=== PATIENT | female | born 1960 | race Caucasian/White ===

== ENCOUNTER 2020-04-22 08:16 | Outpatient (CLI) | payer OTHER, SELFPAY ==
[2020-04-22 08:56] LABS: Hematocrit 45.1 % (37.0-47.0); Hemoglobin 14.5 g/dL (12.0-15.0)
== END 2020-04-22 08:17 | disposition home or self-care (01) ==
PROVIDERS: Visit Provider Obstetrics & Gynecology
DX: N95.0 Postmenopausal bleeding (principal); Z01.818 Encounter for other preprocedural examination
CPT/HCPCS: 36415; 85014; 85018

== ENCOUNTER 2020-04-23 03:27 | Outpatient (CLI) | payer OTHER, SELFPAY ==
[2020-04-23 17:45] LABS: SARS-CoV-2 RNA PCR Negative
== END 2020-04-23 03:28 | disposition home or self-care (01) ==
LOC: ANHCOVIDDT 03:27
PROVIDERS: Visit Provider Obstetrics & Gynecology
DX: Z01.812 Encounter for preprocedural laboratory examination (principal); Z20.828 Contact with and (suspected) exposure to other viral communicable diseases
CPT/HCPCS: 87635; C9803; U0003

== ENCOUNTER 2020-04-26 01:40 | Day surgery (SDC) | payer OTHER, SELFPAY ==
[2020-04-21 10:47] VITALS: BMI 23.6
--- NOTE | 2020-04-21 11:19 | P.HP_ITS ---
H&P: HPI History of Present Illness Date/Time: 04/21/20 11:19 Chief complaint: Postmenopausal Bleeding Narrative: Mikayla Oconnor is a 60 year old female who is postmenopausal by 10+ years is admitted for hysteroscopy dilatation curettage. She had some vaginal bleeding for 10 days. Ultrasound shows endometrium to measure 12mm in size. Risks and benefits were reviewed in full. She received the [employer] handout entitled hysteroscopy as well as dilatation curettage respectively. She had all questions answered. She asked to proceed Review of Systems Review of Systems: All systems reviewed & are unremarkable except as noted in HPI and below [facility] Social History Social History Smoking status: Never smoker Spiritual care concerns: No Meds Home Medications and Allergies Home Medications Medication Instructions Recorded Confirmed Type multivitamin 1 tablet PO DAILY 04/21/20 04/21/20 History Allergies Allergy/AdvReac Type Severity Reaction Status Date / Time No Known Allergies Allergy Unverified 04/21/20 10:48 Exam Const: General: no acute distress Eyes: General: appearance normal, both eyes and all related structures Neck: Neck: supple and no JVD Thyroid: thyroid normal Resp: Effort & Inspection: normal respiratory effort Auscultation: clear to auscultation bilaterally Cardio: Rate: regular rate Rhythm: regular rhythm GI: Inspection: non-distended GI Palp: Yes Soft to palpation, No Tenderness to palpation present (GI) and No Guarding due to palpation present (GI) Auscultation: normal bowel sounds : General: Yes bladder normal to palpation External Female Exam: normal external appearance Speculum Exam - Vagina: normal vaginal discharge and No vaginal bleeding Speculum Exam - Cervix: nontender Bimanual exam- vagina & uterus: bladder normal to palpation and No Cervical tenderness present O B/external & speculum: No vaginal bleeding Skin: General skin exam: no rashes or lesions noted Extrem: General: normal to inspection and no edema Psych: Mental Status: mental status grossly normal Affect: normal affect Assessment and Plan Additional Plan impression: Postmenopausal bleeding Plan: Hysteroscopy/dilatation curettage
--- NOTE | 2020-04-26 06:25 | WPDHPUPDATE1 ---
History and Physical Update Update Date/Time: 04/26/20 06:25 History and Physical has been reviewed, including an updated exam of the patient. There are NO changes in the patient's condition. Risks, benefits, and alternatives have been discussed and questions answered. Patient agrees to proceed with procedure.
[2020-04-26] MEDS: ACETAMINOPHEN 500 MG TABLET 1000 MG PO (06:50)
[2020-04-26] MEDS: LACTATED RINGERS 1,000 ML 30 ML IV CONT (06:55)
[2020-04-26 07:09] VITALS: BP 133/70; PULSE 64; RESP 16; TEMP 36.6; O2SAT 100
--- NOTE | 2020-04-26 07:49 | WPDANESEPPF ---
Anes - Initial Pre Proc Eval Procedure: Operation Date: 04/26/20 08:30 Proposed Procedures p Hysteroscopy, Dilation And Curettage - Jean Grey MD Date/Time: 04/26/20 07:49 Surgeon: Jean Grey MD Pre Op Diagnosis: Postmenopausal Bleeding Patient Data Age: 60 Gender: F Height: 1.68 m Weight: 68.1 kg Last Vital Signs Temp 36.6 C 04/26/20 07:09 Pulse 64 04/26/20 07:09 Resp 16 04/26/20 07:09 BP 133/70 04/26/20 07:09 Pulse Ox 100 04/26/20 07:09 Allergies Allergy/AdvReac Type Severity Reaction Status Date / Time No Known Allergies Allergy Verified 04/26/20 06:45 Home Medications Medication Instructions Recorded Confirmed Type multivitamin 1 tablet PO DAILY 04/21/20 04/26/20 History hydrocodone-acetaminophen 1 tablet PO Q6H PRN #20 tablet 04/26/20 Rx Patient hx anesthesia problems: none Family hx anesthesia problems: none PMFSH Social History Social History Smoking status: Never smoker Spiritual care concerns: No Anes - Eval Final PreProcedure Day of Procedure 04/26/20 07:49 Patient weight: normal Heart: regular rate and rhythm Lungs: clear to auscultation and normal air movement Airway: Mallampati scale class II Neurological: alert and oriented Last oral intake: >/= 8 hours ASA classification: I Emergent: no Anesthetic plan: proceed Anesthesia type and monitoring: general LMA Informed Consent: The patient's anesthetic plan and its attendant risks and benefits were discussed with the patient/family/POA. Questions were solicited and answers provided to the satisfaction of the patient/family/POA.
--- NOTE | 2020-04-26 08:44 | SUR.OPER ---
hysteroscopy irrigation 50 in and 50 out
--- NOTE | 2020-04-26 08:49 | PM.PROC ---
Procedure Note - Detailed Date of procedure: 04/26/20 Pre-op diagnosis: Postmenopausal Bleeding Surgeon: Jean Grey MD postop diagnosis: Postmenopausal bleeding/ endometrial polyp Procedure: Hysteroscopy/ polypectomy / dilatation curettage Anesthesia: IV sedation and local EBL: 5Cc complications: None Findings: A benign-appearing endometrial polyp. Otherwise benign bland appearing endometrium Description ofProcedure: the patient was prepped and draped in the normal sterile fashion and placed in dorsal lithotomy position. Under excellent IV sedation weighted speculum was placed in posterior fornix of vagina. 2.5cc of 1% xylocaine anesthesia placed at 2, 4, 6, 10:00 a.m. of the cervix. The uterus sounded to 8cm. Serial dilatation with fragmented dilators performed followed by passage of the 5mm visualizing hysteroscope. Normal saline was used as visualizing medium. Moderate size polyp was seen in the uterus. This was removed with the polyp resector. The uterus was then scraped over the entire 360? until a good grating sound was heard. The procedure was finished. All sponge, needle, instrument counts were correct. There were no immediate complications
[2020-04-26 08:52] VITALS: BP 82/48; PULSE 53; RESP 12; O2SAT 97
[2020-04-26 09:10] VITALS: BP 89/57; PULSE 59; RESP 16; O2SAT 97
[2020-04-26 09:40] VITALS: BP 118/68; PULSE 56
[2020-04-26 09:58] VITALS: BP 114/75; PULSE 53
== END 2020-04-26 10:08 | disposition home or self-care (01) ==
PROVIDERS: Visit Provider Obstetrics & Gynecology
PROC: 0U5B8ZZ Destruction of Endometrium, Via Natural or Artificial Opening Endoscopic (ICD-10-PCS; CPT 58563; principal; 2020-04-26 08:30)
DX: N95.0 Postmenopausal bleeding (principal); N84.0 Polyp of corpus uteri
CPT/HCPCS: 58558; 88305; A9270; J1100; J2001; J2250; J2405; J2704; J3010; J7030; J7120

== ENCOUNTER 2020-12-13 09:05 | Outpatient (CLI) | payer OTHER, SELFPAY ==
--- NOTE | ~2020-12-13 | MM_ITS ---
EXAMINATION: MM screening [facility] BI w ronnie HISTORY: Screening mammogram TECHNIQUE: Craniocaudal and mediolateral oblique 3-D tomosynthesis images were obtained and synthetic 2-D images were generated. CAD analysis was submitted and interpreted. COMPARISON: 07/13/2017, 09/04/2012, 08/29/2012 BREAST PARENCHYMAL COMPOSITION: There are scattered areas of fibroglandular density. FINDINGS: RIGHT BREAST: An asymmetry is present in the anterior third of the outer breast 4 cm from the nipple on the craniocaudal view. LEFT BREAST: There is no evidence of suspicious mass, calcification, or architectural distortion to s uggest malignancy. There has been no significant interval change. IMPRESSION: 1. Right breast asymmetry on the craniocaudal view. 2. Additional mammographic views and possible breast ultrasound are recommended. BI-RADS Category 0: Incomplete: Needs additional imaging evaluation. Reviewed, dictated and finalized at location A. IMPRESSION: 1. Right breast asymmetry on the craniocaudal view. 2. Additional mammographic views and possible breast ultrasound are recommended . BI-RADS Category 0: Incomplete: Needs additional imaging evaluation.
== END 2020-12-13 09:06 | disposition home or self-care (01) ==
PROVIDERS: PCP Physician Assistant; Visit Provider Physician Assistant
DX: Z12.31 Encounter for screening mammogram for malignant neoplasm of breast (principal); R92.8 Other abnormal and inconclusive findings on diagnostic imaging of breast
CPT/HCPCS: 77063; 77067

== ENCOUNTER 2021-01-17 11:20 | Outpatient (CLI) | payer OTHER, SELFPAY ==
--- NOTE | ~2021-01-17 | MMUS_ITS ---
CORRECTED REPORT Procedure description needed. 01/18/2021 sef EXAMINATION: MM diagnostic [facility] RT w ronnie, US breast RT limited HISTORY: Follow-up right breast asymmetry TECHNIQUE: Additional 3-D tomosynthesis images of the right breast were performed and synthetic 2-D images were generated. CAD analysis was submitted and interpreted. High resolution Limited right breast ultrasound was performed. COMPARISON: Comparison to multiple prior studies sequentially, with oldest reviewed study dated 08/29/2012. BREAST PARENCHYMAL COMPOSITION: The breasts are heterogenously dense, which may obscure small masses. FINDINGS: MAMMOGRAPHIC FINDINGS: There is a persistent asymmetry in the upper-outer quadrant of the right breast which is less dense with spot compression views, possibly superimposed fibroglandular tissue. No suspicious calcifications or architectural distortion. ULTRASOUND: Limited right breast ultrasound: No discrete solid or cystic masses are identified. Mildly prominent ducts noted. IMPRESSION: 1. Probable benign focal asymmetry upper outer quadrant of the right breast. No sonographic correlate. 2. Recommend 6 month follow-up diagnostic right mammogram. BI-RADS category 3, probably benign findings. Reviewed, dictated and finalized at location A. MTDD IMPRESSION: 1. Probable benign focal asymmetry upper outer quadrant of the right breast. No sonographic correlate. 2. Recommend 6 month follow-up diagnostic right mammogram. BI-RADS category 3, probably benign findings.
== END 2021-01-17 11:21 | disposition home or self-care (01) ==
LOC: ANHIMG 11:22
PROVIDERS: PCP Physician Assistant; Visit Provider Physician Assistant
DX: R92.8 Other abnormal and inconclusive findings on diagnostic imaging of breast (principal)
CPT/HCPCS: 76642; 77061; 77065; G0279

== ENCOUNTER 2024-11-18 12:45 | Outpatient (CLI) | payer BC, SELFPAY ==
--- NOTE | ~2024-11-18 | MMUS_ITS ---
EXAMINATION: US breast RT limited, MM diagnostic [facility] BI w ronnie HISTORY: Palpable right breast abnormality TECHNIQUE: Additional 3-D tomosynthesis images of the breasts were performed and synthetic 2-D images were generated. CAD analysis was submitted and interpreted. High resolution Limited right breast ult rasound was performed. COMPARISON: Comparison to multiple prior studies sequentially, with oldest reviewed study dated 07/13. BREAST PARENCHYMAL COMPOSITION: Dense: The breasts are heterogeneously dense, which may obscure small masses FINDINGS: MAMMOGRAPHIC FINDINGS: The left breast is stable without evidence for malignancy. There is a new spiculated mass in the uppe r outer quadrant of the right breast in the area palpable concern. There are no suspicious calcificat ions. ULTRASOUND: Limited right breast ultrasound: At 10:00, 3 cm from the nipple there is an irregular shaped hypoecho ic mass measuring 1.2 x 1.1 x 0.7 cm with posterior shadowing. No internal vascularity. This correspo nds to the mammographic and palpable abnormality. IMPRESSION: 1. New spiculated 1.2 cm right breast mass at 10:00, 3 cm from the nipple. 2. Ultrasound-guided right breast biopsy recommended. BI-RADS category 5, highly suggestive of malignancy. Reviewed, dictated and finalized at location B. IMPRESSION: 1. New spiculated 1.2 cm right breast mass at 10:00, 3 cm from the nipple. 2. Ultrasound-guided right breast biopsy recommended. BI-RADS category 5, highly suggestive of malignancy.
== END 2024-11-18 12:46 | disposition home or self-care (01) ==
LOC: ANHIMG 12:49
PROVIDERS: PCP Physician Assistant; Visit Provider Obstetrics & Gynecology
DX: N63.11 Unspecified lump in the right breast, upper outer quadrant (principal)
CPT/HCPCS: 76642; 77062; 77066; G0279

== ENCOUNTER 2024-12-30 08:22 | Outpatient (CLI) | payer BC, SELFPAY ==
--- NOTE | ~2024-12-30 | MMUS_ITS ---
EXAMINATION: US breast biopsy RT w image, MM post biopsy diagnostic RT DATE: 12/30/2024 09:47 (accession [id number]), 12/30/2024 09:40 (accession [id number]) INDICATION: 64-year-old woman with a BI-RADS 5 lesion at the 10:00 position of the right breast prese nts for ultrasound-guided biopsy BREAST PARENCHYMAL COMPOSITION:Heterogeneously dense fibroglandular tissue TECHNIQUE: The procedure including the risks, benefits, and alternatives was discussed with the patie nt. Risks discussed included bleeding and infection. The patient understood the risks and agreed to proceed. The skin overlying the right breast was prepped and draped in usual sterile fashion. Anesthetic was administered with 1% lidocaine subcutaneously, approximately 16 cc. Limited ultrasound examination of the right breast was then again performed. At the 10:00 position of the right breast approximately 3 cm from the nipple is an irregular shadowin g mass with angular margins and an echogenic halo, suitable for biopsy. A 9G introducer was placed using ultrasound guidance into the abnormality at the 10:00 position of th e right breast, and the inner needle removed. A 10-gauge vacuum-assisted biopsy device was then used to obtain 6 biopsy specimens under continuous sonographic guidance. The biopsy device was then removed, and through the introducer a butterfly alex er was placed. Of note, during lidocaine injection the anterior chest wall muscle appeared to be tethered to this ma ss. The entry site was cleaned and dressed with Steri-Strips. There were no immediate complications. Post biopsy mammography was then performed in both the CC and MLO positions demonstrating a butterfly microclip in the upper outer quadrant of the right breast without a significant perilesional hematom a. IMPRESSION: 1. Technically successful ultrasound-guided vacuum-assisted core biopsy of the BI-RADS 5 lesion at th e 10:00 position of the right breast approximately 3 cm from the nipple, with postprocedure mammogram for marker placement confirmation.. Pathology pending Reviewed, dictated and finalized at location A. IMPRESSION: 1. Technically successful ultrasound-guided vacuum-assisted core biopsy of the BI-RADS 5 lesion at the 10:00 position of the right breast approximately 3 cm f rom the nipple, with postprocedure mammogram for marker placement confirmation. . Pathology pending
--- NOTE | 2024-12-30 09:14 | S_PTH ---
PATIENT: Mikayla Wetzel LOC: [facility] U#:[id number] AGE/SX: 64/F ROOM: RE12/30/[address]: Jean Owusu MD : 1960 BED: DIS: 12/30/2024 SPEC #: [id number] RECD: 12/30/24 10:00 STATUS: ELLY RETai #: [id number] JAREK: 12/30/24 09:[address]: Jean Teran DEPT: [facility] Surgical RECD BY: Christine Turcios ENTERED: 12/30/24 10:00 SP TYPE: Surgical OTHR DR: Verenice Patrick, PA Tissues: A - Breast Biopsy Procedures: Hematoxylin and Eosin Stain Gross and Microscopic Level 4 ER-60 MT-60 MIB-60 HER 2-60
== END 2024-12-30 08:23 | disposition home or self-care (01) ==
PROVIDERS: PCP Physician Assistant; Visit Provider Obstetrics & Gynecology
DX: C50.411 Malignant neoplasm of upper-outer quadrant of right female breast (principal)
CPT/HCPCS: 19083; 77065; 88305; 88360; A4648